=== PATIENT | female | born 1955 | race Caucasian/White ===

== ENCOUNTER 2022-08-01 22:04 | Emergency (ER) | payer OTHER ==
[~2022-08-01] VITALS: Ht 165.1 cm; Wt 65.8 kg
[2022-08-01] MEDS ORDERED: XARELTO20 M1 PO (22:18)
[2022-08-01] MEDS ORDERED: TOPROL XL50 M1 PO (22:19)
== END 2022-08-01 23:58 | disposition home or self-care (01) ==
LOC: ER 22:04
DX: I48.91 Unspecified atrial fibrillation (principal); Z79.01 Long term (current) use of anticoagulants; Z20.822 Contact with and (suspected) exposure to COVID-19

== ENCOUNTER 2022-08-02 03:44 | Inpatient (IN) | payer OTHER ==
[~2022-08-02] VITALS: Ht 152.4 cm; Wt 70.8 kg
[~2022-08-02 03:44] MED LIST: TOPROL XL50 M1 PO; XARELTO20 M1 PO
== END 2022-08-04 14:58 | disposition home or self-care (01) | DRG 309 ==
LOC: ER 03:44 → MEDI 11:01
PROVIDERS: ADMIT Internal Medicine; ATTEND Internal Medicine
PROC: B24BZZZ Ultrasonography of Heart with Aorta (ICD-10-PCS; principal; 2022-08-02)
PROC: 4A12X4Z Monitoring of Cardiac Electrical Activity, External Approach (ICD-10-PCS; 2022-08-02)
DX: I48.91 Unspecified atrial fibrillation (principal); I50.30 Unspecified diastolic (congestive) heart failure; I34.0 Nonrheumatic mitral (valve) insufficiency; I11.0 Hypertensive heart disease with heart failure; Z20.822 Contact with and (suspected) exposure to COVID-19